=== PATIENT | male | born 1965 | race Caucasian/White ===

== ENCOUNTER 2024-02-16 04:34 | Day surgery (SDC) | payer OTHER ==
[2024-02-15 16:02] VITALS: BMI 27.3
[2024-02-16] MEDS ORDERED: ONDANSETRON 4 MG/2 ML VIAL ONE (11:29)
[2024-02-16] MEDS ORDERED: KETOROLAC TROMETHAMINE 30 MG/1 ML VIAL ONE (11:29)
[2024-02-16] MEDS ORDERED: ceFAZolin SODIUM 1 GM VIAL ONE (11:29)
[2024-02-16] MEDS ORDERED: MIDAZOLAM HCL 2 MG/2 ML SINGLE DOSE VIAL ONE (11:29)
[2024-02-16] MEDS ORDERED: DEXAMETHASONE SOD PHOSPHATE 4 MG/1 ML VIAL ONE (11:29)
[2024-02-16] MEDS: ceFAZolin SODIUM 1 GM VIAL IVPB ONE ×2 (12:01)
[2024-02-16] MEDS ORDERED: LACTATED RINGERS SOLUTION 1,000 ML IV SCH (13:00)
[2024-02-16] MEDS ORDERED: oxyCODONE HCL 5 MG TABLET ONE (14:51)
[2024-02-16] MEDS: oxyCODONE HCL 5 MG TABLET PO PRN (14:54)
[2024-02-16 15:07] VITALS: BP 120/73; PULSE 61; RESP 20; TEMP 97.3
== END 2024-02-16 15:41 | disposition home or self-care (01) ==
LOC: JASU-SURG 04:34
PROVIDERS: ATTEND Urology
PROC: 0TC08ZZ Extirpation of Matter from Right Kidney, Via Natural or Artificial Opening Endoscopic (ICD-10-PCS; 2024-02-16)
PROC: 0T788DZ Dilation of Bilateral Ureters with Intraluminal Device, Via Natural or Artificial Opening Endoscopic (ICD-10-PCS; 2024-02-16)
PROC: 0TC18ZZ Extirpation of Matter from Left Kidney, Via Natural or Artificial Opening Endoscopic (ICD-10-PCS; principal; 2024-02-16 10:00)
DX: N20.0 Calculus of kidney (principal)
CPT/HCPCS: 76000-TC-FY; 94760; C1758